=== PATIENT | female | born 1995 | race Caucasian/White ===

== ENCOUNTER 2017-06-12 04:03 | Emergency (ER) | payer OTHER ==
[2017-06-12] MEDS ORDERED: Ondansetron HCl/PF 4 MG/2 ML Vial ONE (05:04)
[2017-06-12] MEDS ORDERED: Promethazine HCl 25 MG/ML VIAL ONE (05:04)
[2017-06-12] MEDS ORDERED: Ketorolac Tromethamine 30 MG/ML VIAL ONE (05:11)
[2017-06-12 05:29] LABS: #Basophils 0.1 thou/uL (0.0-0.2); #Eosinphils 0.2 thou/uL (0.0-0.7); #Lymphocytes 0.9 thou/uL (1.20-3.40); #Monocytes 0.6 thou/uL (0.11-0.59); #Neutrophils 6.9 thou/uL (1.40-6.50); %Basophils 0.6 % (0.0-1.0); %Eosinophils 1.9 % (0.0-10.0); %Lymphocytes 10.1 % (21.0-51.0); %Monocytes 7.4 % (0.0-10.0); Hematocrit 42.9 % (36.0-47.0); Mean Platelet Volume 5.6 fL (7.4-10.4); Red Blood Cell (RBC) Count 4.39 mill/uL (4.20-5.40); White Blood Cell (WBC) Count 8.6 thou/uL (4.8-10.8)
[2017-06-12 05:42] LABS: ALT (SGPT) 23 U/L (8-55); AST (SGOT) 14 U/L (5-34); Alkaline Phosphatase 60 U/L (40-150); Anion Gap 14 mmol/L (10-20); BUN (Urea Nitrogen) 15 mg/dL (7.0-18.7); Bilirubin, Total 0.5 mg/dL (0.2-1.2); Calc. Creatinine Clearance 0 mL/min (70-130); Carbon Dioxide 22 mmol/L (22-29); Chloride 108 mmol/L (98-107); Estimated GFR-MDRD Greater than 90; Globulin 2.7 g/dL (2.4-3.5); Protein, Total 6.7 g/dL (6.0-8.3)
== END 2017-06-12 06:30 | disposition home or self-care (01) ==
LOC: SCSER 04:03
DX: R11.2 Nausea with vomiting, unspecified (principal); E86.0 Dehydration; J45.909 Unspecified asthma, uncomplicated; F17.210 Nicotine dependence, cigarettes, uncomplicated
CPT/HCPCS: 80053; 84703; 85025; 96365; 96375; J1885; J2405; J2550

== ENCOUNTER 2017-10-16 23:30 | Emergency (ER) | payer OTHER ==
[2017-10-17] MEDS ORDERED: diphenhydrAMINE 50 MG/ML VIAL ONE (00:05)
[2017-10-17 00:48] LABS: #Basophils 0.1 thou/uL (0.0-0.2); #Eosinphils 0.1 thou/uL (0.0-0.7); #Lymphocytes 1.2 thou/uL (1.20-3.40); #Monocytes 0.7 thou/uL (0.11-0.59); #Neutrophils 7.6 thou/uL (1.40-6.50); %Eosinophils 1.3 % (0.0-10.0); %Lymphocytes 12.8 % (21.0-51.0); Hemoglobin 14.2 g/dL (12.0-16.0); Mean Corpuscular HGB CONC 35.4 g/dL (32.0-36.0); Mean Corpuscular Hemoglobin 33.2 pg (27.0-31.0); Mean Corpuscular Volume 93.7 fl (81.0-99.0); Mean Platelet Volume 5.4 fL (7.4-10.4); Platelet Count 284 thou/uL (130-400); RBC Distribution Width 12.4 % (11.5-14.5); Red Blood Cell (RBC) Count 4.29 mill/uL (4.20-5.40); White Blood Cell (WBC) Count 9.7 thou/uL (4.8-10.8)
[2017-10-17] MEDS ORDERED: Ondansetron HCl/PF 4 MG/2 ML Vial ONE (00:57)
[2017-10-17 01:19] LABS: ALT (SGPT) 24 U/L (8-55); AST (SGOT) 16 U/L (5-34); Albumin 3.9 g/dL (3.5-5.0); Alkaline Phosphatase 52 U/L (40-150); Anion Gap 13 mmol/L (10-20); BUN (Urea Nitrogen) 10 mg/dL (7.0-18.7); Bilirubin, Total 0.5 mg/dL (0.2-1.2); Calc. Creatinine Clearance 0 mL/min (70-130); Calcium 8.7 mg/dL (7.8-10.44); Carbon Dioxide 19 mmol/L (22-29); Chloride 110 mmol/L (98-107); Estimated GFR-MDRD Greater than 90; Glucose 99 mg/dL (70-105); Lipase 11 U/L (8-78); Potassium 3.9 mmol/L (3.5-5.1); Protein, Total 6.9 g/dL (6.0-8.3); Sodium 138 mmol/L (136-145)
--- NOTE | 2017-10-17 08:19 | ULT ---
US , Transvaginal CLINICAL HISTORY: 22 years old, female; Signs and symptoms; Lmp or gestational age (in weeks): 6wks; Other: N/v/d, abd pain; TECHNIQUE: Real-time transvaginal obstetrical ultrasound of the maternal pelvis and a first trimester with image documentation. Transvaginal imaging was used for better evaluation of the fetus and adnexa . COMPARISON: No relevant prior studies available. FINDINGS: Intrauterine gestational sac, containing a yolk sac and possible very small pole. Presumed eek n rump length of 3 mm estimates age at 6 weeks, 0 days. Probable heart activity documented by t technologist, 86 bpm. Minimal cul-de-sac fluid. Maternal ovaries/adnexa otherwise appear essentially unremarkable. Blood flow detected in each ovary. The urinary bladder was not completely evaluated/imaged at this time. Endovaginal scanning provided better visualization/evaluation of the gestational sac and contents, as discussed above. IMPRESSION: Intrauterine , details above. 6 weeks, 0 days estimated age. US First Trimester, Transabdominal TECHNIQUE: Real-time transabdominal obstetrical ultrasound of the maternal pelvis and a first trimester pregnanc y with image documentation. COMPARISON: No relevant prior studies available. FINDINGS: Intrauterine gestational sac, containing a yolk sac and possible very small pole. Presumed crown rump length of 3 mm estimates age at 6 weeks, 0 days. Probable heart activity documented by the technologist, 86 bpm. Minimal cul-de-sac fluid. Maternal ovaries/adnexa otherwise appear essentially unremarkable. Blood flow detected in each ovary. The urinary bladder was not completely evaluated/imaged at this time. IMPRESSION: Intrauterine , details above. 6 weeks, 0 days estimated age. Other details discussed above. Thank you for allowing us to participate in the care of your patient. Dictated and Authenticated by: Jermaine Randle MD 10/17/2017 2:25 AM Central Time ([place] & [place]) EMERGENT AFTER HOURS PELVIC ULTRASOUND FINAL REPORT: IMPRESSION: I agree with the preliminary interpretation given by [facility]. Intrauterine gestation with estimated gesta tional age 6 weeks 0 days. POS: [facility]
== END 2017-10-17 02:07 | disposition home or self-care (01) ==
LOC: SCSER 23:30
DX: O21.9 Vomiting of pregnancy, unspecified (principal); O99.89 Other specified diseases and conditions complicating pregnancy, childbirth and the puerperium; R19.7 Diarrhea, unspecified; O99.511 Diseases of the respiratory system complicating pregnancy, first trimester; J45.909 Unspecified asthma, uncomplicated; O99.331 Smoking (tobacco) complicating pregnancy, first trimester; F17.210 Nicotine dependence, cigarettes, uncomplicated; Z3A.01 Less than 8 weeks gestation of pregnancy
CPT/HCPCS: 76856; 80053; 83690; 84702; 85025; 96361; 96374; 96375; J1200; J2405

== ENCOUNTER 2017-11-29 15:43 | Emergency (ER) | payer OTHER ==
[2017-11-29 16:16] LABS: #Eosinphils 0.1 thou/uL (0.0-0.7); #Lymphocytes 0.9 thou/uL (1.20-3.40); #Monocytes 0.4 thou/uL (0.11-0.59); #Neutrophils 6.4 thou/uL (1.40-6.50); %Basophils 0.2 % (0.0-1.0); %Eosinophils 1.3 % (0.0-10.0); %Lymphocytes 11.9 % (21.0-51.0); %Monocytes 5.2 % (0.0-10.0); %Neutrophils 81.4 % (42.0-75.0); Hemoglobin 14.5 g/dL (12.0-16.0); Mean Corpuscular Hemoglobin 34.5 pg (27.0-31.0); Mean Corpuscular Volume 98.6 fl (81.0-99.0); Mean Platelet Volume 6.6 fL (7.4-10.4); Platelet Count 249 thou/uL (130-400); RBC Distribution Width 12.4 % (11.5-14.5); Red Blood Cell (RBC) Count 4.21 mill/uL (4.20-5.40); White Blood Cell (WBC) Count 7.9 thou/uL (4.8-10.8)
[2017-11-29] MEDS ORDERED: Ondansetron ODT 4 MG TAB ONE ×2 (16:33→18:31)
[2017-11-29 16:37] LABS: ALT (SGPT) 23 U/L (8-55); AST (SGOT) 17 U/L (5-34); Albumin 3.8 g/dL (3.5-5.0); Alkaline Phosphatase 57 U/L (40-150); Anion Gap 13 mmol/L (10-20); BUN (Urea Nitrogen) 6 mg/dL (7.0-18.7); Bilirubin, Total 0.6 mg/dL (0.2-1.2); Calc. Creatinine Clearance 0 mL/min (70-130); Calcium 9.1 mg/dL (7.8-10.44); Carbon Dioxide 18 mmol/L (22-29); Chloride 108 mmol/L (98-107); Estimated GFR-MDRD Greater than 90; Globulin 2.9 g/dL (2.4-3.5); Glucose 78 mg/dL (70-105); Lipase 7 U/L (8-78); Potassium 3.8 mmol/L (3.5-5.1); Protein, Total 6.7 g/dL (6.0-8.3); Sodium 135 mmol/L (136-145)
[2017-11-29 16:49] LABS: Bilirubin Small (Negative); Blood, Urine Negative (Negative); Clarity CLEAR (Clear); Glucose, Urine (Dipstick) Negative (Negative); Leukocyte Negative (Negative); Nitrite Negative (Negative); Protein, Urine (Dipstick) Negative (Neg-Trace)
== END 2017-11-29 18:42 | disposition home or self-care (01) ==
LOC: ERS 15:43
DX: O21.9 Vomiting of pregnancy, unspecified (principal); O99.511 Diseases of the respiratory system complicating pregnancy, first trimester; J45.909 Unspecified asthma, uncomplicated; O99.331 Smoking (tobacco) complicating pregnancy, first trimester; F17.210 Nicotine dependence, cigarettes, uncomplicated; Z3A.12 12 weeks gestation of pregnancy; Z79.899 Other long term (current) drug therapy
CPT/HCPCS: 80053; 81003; 83690; 84702; 85025; 96360; Q0162

== ENCOUNTER 2018-06-29 19:21 | Inpatient (IN) | payer OTHER ==
[2018-06-29 20:04] LABS: Bilirubin Negative (Negative); Blood, Urine Negative (Negative); Clarity CLEAR (Clear); Glucose, Urine (Dipstick) Negative (Negative); Leukocyte Trace (Negative); Nitrite Negative (Negative); Protein, Urine (Dipstick) Negative (Neg-Trace); pH, Urine 7.5 (5.0-9.0)
[2018-06-29 20:06] LABS: Bacteria/HPF None Seen HPF (None Seen); Hyaline Casts/LPF 0-3 HYALINE CAST LPF (0-3 Hyaline); Pathc Cast-AUWi Flag 0.14 (0-2.49); RBC/HPF 0-3 HPF (0-3); WBC/HPF 0-3 HPF (0-3)
[2018-06-29 20:19] LABS: #Basophils 0.1 thou/uL (0.0-0.2); #Eosinphils 0.3 thou/uL (0.0-0.7); #Monocytes 0.5 thou/uL (0.11-0.59); #Neutrophils 4.6 thou/uL (1.40-6.50); %Basophils 0.9 % (0.0-1.0); %Eosinophils 4.7 % (0.0-10.0); %Lymphocytes 26.7 % (21.0-51.0); %Monocytes 6.2 % (0.0-10.0); %Neutrophils 61.5 % (42.0-75.0); Hemoglobin 14.9 g/dL (12.0-16.0); Mean Corpuscular HGB CONC 33.2 g/dL (32.0-36.0); Mean Corpuscular Hemoglobin 32.5 pg (27.0-31.0); Mean Corpuscular Volume 97.9 fL (78.0-98.0); Mean Platelet Volume 7.2 fL (7.4-10.4); Platelet Count 299 thou/uL (130-400); RBC Distribution Width 12.2 % (11.5-14.5); White Blood Cell (WBC) Count 7.4 thou/uL (4.8-10.8)
[2018-06-29] MEDS ORDERED: Lidocaine Viscous Sol 2% 15 ml UD Cup ONE (20:23)
[2018-06-29] MEDS ORDERED: Mag-Al 1200 mg/1200 mg/30 ML UDCUP ONE (20:23)
[2018-06-29 20:37] LABS: ALT (SGPT) 85 U/L (8-55); AST (SGOT) 14 U/L (5-34); Alkaline Phosphatase 186 U/L (40-150); Anion Gap 14 mmol/L (10-20); BUN (Urea Nitrogen) 12 mg/dL (7.0-18.7); Bilirubin, Total 0.3 mg/dL (0.2-1.2); Calc. Creatinine Clearance 0 mL/min (70-130); Calcium 9.7 mg/dL (7.8-10.44); Carbon Dioxide 22 mmol/L (22-29); Chloride 106 mmol/L (98-107); Estimated GFR-MDRD Greater than 90; Globulin 2.9 g/dL (2.4-3.5); Glucose 78 mg/dL (70-105); Potassium 3.9 mmol/L (3.5-5.1); Protein, Total 6.9 g/dL (6.0-8.3); Sodium 138 mmol/L (136-145)
[2018-06-29] MEDS ORDERED: Ondansetron ODT 8 MG TAB ONE (21:06)
[2018-06-29] MEDS ORDERED: Sucralfate 1 GM/10 ML UDCUP ONE (21:36)
--- NOTE | 2018-06-29 21:40 | ULT ---
RIGHT UPPER QUADRANT ULTRASOUND 06/29/18 PROVIDED CLINICAL HISTORY: Right upper quadrant pain. FINDINGS: The visualized portions of the IVC and pancreas appear normal. The liver appears enlarged, measuring about 20 cm in craniocaudal dimensions in the right hepatic lobe. The liver appears echogenic with re spect to the right kidney. There is no evidence for mass or intrahepatic biliary ductal dilatation. Multiple shadowing echogenic foci are seen within the gallbladder lumen compatible with gallstones. T he gallbladder appears distended. The gallbladder wall appears upper limits normal in size to mildly thickened measuring 3 to 4 mm. There is no pericholecystic fluid evident. A small amount of retroperi toneal fluid may be present adjacent to the pancreatic head. [employer] indicates positive sonograph ic Vazquez's sign. Right kidney demonstrates no evidence for hydronephrosis or mass. IMPRESSION: 1. Cholelithiasis with gallbladder wall prominence and reported sonographic Vazquez's sign. Corre late with concerns for acute cholecystitis. 2. Fatty infiltration of the liver. POS: [facility]
[2018-06-29] MEDS ORDERED: Morphine 4 MG/ML VIAL ONE (22:41)
[2018-06-30] MEDS ORDERED: Ondansetron ODT 4 MG TAB SL PRN (00:22)
[2018-06-30] MEDS ORDERED: Morphine 4 MG/ML VIAL SLOW IVP PRN ×2 (00:22→10:48)
[2018-06-30] MEDS ORDERED: Ondansetron PF 4 MG/2 ML Vial IVP PRN ×2 (00:22→10:48)
[2018-06-30] MEDS ORDERED: Dextrose 5 % And 0.9 % NaCl 1,000 ML IV SCH (00:30)
[2018-06-30] MEDS ORDERED: Sodium Chloride 0.9% 1,000 ML IV SCH (07:45)
[2018-06-30] MEDS ORDERED: Fentanyl 100 MCG/2 ML VIAL ONE (08:21)
[2018-06-30] MEDS ORDERED: Bupivacaine/Epinephrine 0.25% 30 ML VIAL ONE ×2 (09:01→09:25)
[2018-06-30] MEDS ORDERED: Iothalamate Meglumine 60% 50 ML VIAL FS ONE ×2 (09:01→09:25)
[2018-06-30] MEDS ORDERED: Fentanyl 250 MCG/5 ML VIAL ONE (09:15)
[2018-06-30] MEDS ORDERED: Midazolam HCl 2 mg/2 ml Vial ONE (09:26)
--- NOTE | 2018-06-30 10:02 | HP ---
CHIEF COMPLAINT: Right upper quadrant abdominal pain. HISTORY: This is a 22-year-old female, who is three weeks with a seven month history of intermittent right upper quadrant pain. This has been progressive and much worse yesterday. She came to the emergency room. The pain radiates to the back associated with nausea and vomiting. No fever. PAST MEDICAL HISTORY: She has herpes, virus S2. She has asthma. PAST SURGICAL HISTORY: She has had no previous surgeries. MEDICATIONS: She is on acyclovir. ALLERGIES: SHE IS ALLERGIC TO PENICILLIN. SOCIAL HISTORY: She is single, unemployed. Smokes one pack per day. No alcohol. FAMILY HISTORY: Diabetes and cancer. PHYSICAL EXAMINATION: VITAL SIGNS: Temperature 98.4, pulse 56, blood pressure 108/65. GENERAL: Well-developed, well-nourished female, in no apparent distress. HEENT: No jaundice. LUNGS: Clear. HEART: Regular rate and rhythm. ABDOMEN: Soft but tender in the right upper quadrant with a very mild Vazquez sign. EXTREMITIES: Unremarkable. LABORATORY DATA: White count 7.4, hemoglobin and hematocrit of 14 and 45, and platelet count 299. Her ALT is elevated at 85, alkaline phosphatase 186, bilirubin normal at 0.3, lipase is 25. Urinalysis clear. Ultrasound shows cholelithiasis with gallbladder wall thickening and a sonographic Vazquez sign, fatty infiltration of the liver. ASSESSMENT: Early acute cholecystitis with elevated liver function. PLAN: Laparoscopic cholecystectomy with cholangiogram. CONSENT: I have discussed the planned procedure as well as risk of bleeding, infection, injury to bile duct, injury to bowel, need to open. She understands and gives informed consent. Job ID: [id number]
[2018-06-30] MEDS ORDERED: Calcium Carbonate 500 MG ChewTAB PO PRN (10:48)
[2018-06-30] MEDS ORDERED: Dextrose 5% in Water 1,000 ML IV PRN (10:48)
[2018-06-30] MEDS ORDERED: Promethazine HCl 25 MG/ML VIAL IM PRN (10:48)
[2018-06-30] MEDS ORDERED: hydrALAZINE 20 MG/ML VIAL SLOW IVP PRN (10:48)
[2018-06-30] MEDS ORDERED: Mag-Al 1200 mg/1200 mg/30 ML UDCUP PO PRN (10:48)
[2018-06-30] MEDS ORDERED: HYDROcodone/Acetaminophen 10/325 mg Tablet PO PRN ×2 (10:48)
[2018-06-30] MEDS ORDERED: Dextrose 50% Abboject 50 ML SYRINGE SLOW IVP PRN (10:48)
[2018-06-30] MEDS ORDERED: Ketorolac Tromethamine 30 MG/ML VIAL IVP SCH (12:00)
[2018-06-30 12:23] VITALS: TEMP 98.9
--- NOTE | 2018-06-30 12:24 | RAD ---
CHOLANGIOGRAM IN SURGERY: Date: 06/30/18 COMPARISON: Gallbladder ultrasound dated 06/29/18. HISTORY: Cholelithiasis and elevated LFTs. FINDINGS/IMPRESSION: Limited intraoperative fluoroscopic views from a cholangiogram taken in surgery were submitted for in terpretation. Contrast is seen within the common bile duct, duodenum, and pancreatic duct. No obvious filling defects are seen to suggest choledocholithiasis. POS: [facility]
[2018-06-30 13:52] VITALS: BP 116/71
[2018-06-30] MEDS ORDERED: Glycopyrrolate 0.2 MG/ML 5 ML SYRINGE ONE (14:57)
[2018-06-30] MEDS ORDERED: Ketorolac Tromethamine 30 MG/ML VIAL ONE (14:57)
[2018-06-30] MEDS ORDERED: Ondansetron PF 4 MG/2 ML Vial ONE (14:57)
[2018-06-30] MEDS ORDERED: Lidocaine 1% PF 5 ML VIAL ONE (14:57)
[2018-06-30] MEDS ORDERED: PROPOFOL 200 MG/20 ML VIAL ONE (14:57)
[2018-06-30] MEDS ORDERED: Dexamethasone 20 MG/5 ML VIAL ONE (14:57)
[2018-06-30] MEDS ORDERED: Famotidine/PF 20 mg/2ml Vial SLOW IVP SCH (21:00)
[2018-06-30] MEDS ORDERED: Famotidine 20 MG TAB PO SCH (21:00)
--- NOTE | 2018-07-01 03:53 | DIS ---
DATE OF ADMISSION: 06/29/2018 DATE OF DISCHARGE: 06/30/2018 DISCHARGE DIAGNOSIS: Acute cholecystitis. PROCEDURES DURING ADMISSION: Laparoscopic cholecystectomy with intraoperative cholangiogram. HOSPITAL COURSE: The patient was admitted, given IV fluids, IV antibiotics, taken to the operating room where she underwent a laparoscopic cholecystectomy with cholangiogram. Postoperatively, she has done well. Her pain is minimal. She is tolerating liquids. She is discharged home on hydrocodone and Zofran. She will follow up with me in 2 weeks. Job ID: [id number]
[2018-07-01] MEDS ORDERED: Enoxaparin Sodium 40 MG/0.4 ML SYRINGE SC SCH (09:00)
--- NOTE | 2018-07-01 10:38 | OP ---
DATE OF PROCEDURE: 06/30/2018 PREOPERATIVE DIAGNOSIS: Acute cholecystitis. PROCEDURE PERFORMED: Laparoscopic cholecystectomy with cholangiogram. INDICATIONS: This is a 22-year-old female, who has been having episodic right upper quadrant pain since before she delivered a baby three weeks ago. She came in with much more severe pain and nausea and vomiting. Ultrasound showed multiple cholelithiasis with thickened gallbladder wall. Her LFTs were mildly elevated. FINDINGS: She did have a thickened edematous gallbladder wall. There was a stone in the cystic duct, but her cholangiogram was normal. DESCRIPTION OF PROCEDURE: After informed consent was obtained, the patient was taken to the operating room and given general endotracheal anesthesia, placed in the supine position. Abdomen was prepped and draped in usual fashion. Local anesthesia infiltrated subcutaneously and deep, and a subumbilical incision was performed. Subcu divided sharply. The fascia was grasped and two stay sutures of 0 Vicryl placed each side of midline. Midline was incised. Digital palpation revealed no local adhesions. A blunt 10/12 mm trocar inserted. Pneumoperitoneum was created to a pressure of 15 mmHg. A 0-degree laparoscope was inserted under direct vision. Three 5 mm ports were placed subcostally. Gallbladder was grasped and advanced superiorly. The peritoneum lysed distally to dissect out the cystic artery, cystic duct, and critical view. The clip was placed at the base of the gallbladder and incision made in the cystic duct. An Arrow cholangiocatheter was inserted within the cystic duct after a stone had been pushed back into the gallbladder prior to closing it with a clip. An intraoperative cholangiogram was performed utilizing fluoroscopy showing free flow into the duodenum. No filling defects. The catheter was removed. The duct was triply ligated and divided. The artery was triply ligated and divided. The gallbladder removed from its fossa utilizing electrocautery, removed from the abdomen through the umbilical port. Hemostasis assured. Trocars and retractors removed. The fascia was closed with interrupted 0 Vicryl suture. The skin closed with interrupted 4-0 Rapide. Dermabond applied. The patient tolerated the procedure well, transferred to Recovery in good condition. Sponge and needle count verified correct x2. Job ID: [id number]
== END 2018-06-30 15:13 | disposition home or self-care (01) | DRG 769 ==
LOC: ERS 19:21 → 3SE 22:38
PROVIDERS: ADMIT Surgery; ATTEND Surgery
PROC: 0FT44ZZ Resection of Gallbladder, Percutaneous Endoscopic Approach (ICD-10-PCS; principal; 2018-06-30)
PROC: BF14YZZ Fluoroscopy of Gallbladder, Bile Ducts and Pancreatic Ducts using Other Contrast (ICD-10-PCS; 2018-06-30)
DX: O99.63 Diseases of the digestive system complicating the puerperium (principal); K80.00 Calculus of gallbladder with acute cholecystitis without obstruction; O99.53 Diseases of the respiratory system complicating the puerperium; O99.335 Smoking (tobacco) complicating the puerperium; J45.909 Unspecified asthma, uncomplicated; F17.210 Nicotine dependence, cigarettes, uncomplicated; Z88.0 Allergy status to penicillin
CPT/HCPCS: 36415; 47532; 76705; 80053; 81003; 81015; 83690; 85025; 88304; 96374; J1100; J1885; J1956; J2001; J2250; J2270; J2405; J2704; J3010; Q0162; Q9961